=== PATIENT | female | born 1975 | race Caucasian/White ===

== ENCOUNTER 2021-05-30 10:00 | Outpatient (RCR) | payer OTHER, SELFPAY ==
--- NOTE | 2021-04-11 10:15 | [facility].SLAPHASI ---
Speech & Language Evaluation Speech/Language Aphasia Evaluation Start: 04/11/21 09:56 Freq: once Status: Complete Protocol: Document 04/11/21 09:56 BRANDT (Rec: 04/11/21 10:14 BRANDT [id number]) Aphasia Assessment/Goals/Plan Assessment Date of Evaluation: 04/11/21 Evaluation Type Initial Certification Assessment/Problems Ms. Corbett was given an aphasia and motor speech eval secondary to trigemial neuralgia. Does Patient Qualify for Service Yes Qualify/Failure Comment Ms. Melo qualifies to receive services based on the results of the assessment. Plan Pt will be seen # times/week 3 for # weeks 12 Anticipate reaching STG in # weeks 8 Anticipate reaching LTG in # weeks 12 Pt/Guardian verbally ack understanding Yes of dx/prognosis/goals Pt/Guardian verbally ack understanding Yes of/consent to tx prog G -code Required No STG-Intell/Buccal/Labial Strength Intelligibility 90 #Intelligibility Drills Performed/[place] 100 # Times Exercises Perf/Session 100 # Times Exercises Perf/Session 100 Needle Loom Setter Goals Increase oral motor tone to improve Yes intelligibility. Increase intelligibility w/use of Yes traditional articulation treatment. Education Instructions provided Home exercise program will be implemented. Pt/Caregiver Able to Recall Information Able to recall/restate Reinforcement needed No Speech & Language HPI History Present Illness Description of Patient Problem Ms. Corbett was seen today for an aphasia and motor speech eval secondary to trigemial neuralgia. Pt/Caregiver Concerns Ms. Corbett presents with concerns of delayed speech. Symptom Onset Date 03/31/21 Rehab Services Assessed Speech therapy Is this evaluation r/t stroke? No Language Primary Language [place] Lang/Spoken in Home [place] Education/Learning/Family Last School Grade Completed Trade School Diploma Therapy History Seen by other [facility] therapists No Aphasia Evaluations Communication Speech Intelligibility Speech is labored, spastic, and ataxic Auditory Comprehension Yes: Word Level Sentences Following Directions Paragraph Conversation AC Comment All areas within normal limits Reading Comprehension
== END 2021-05-30 10:05 | disposition home or self-care (01) ==
LOC: ST 10:00
PROVIDERS: Visit Provider Nurse Practitioner Family
DX: R47.89 Other speech disturbances (principal)
CPT/HCPCS: 92507; 92523

== ENCOUNTER 2024-05-29 15:00 | Outpatient (RCR) | payer OTHER, SELFPAY | END 2024-05-29 23:59 | disposition home or self-care (01) | LOC: PT 15:00 | PROVIDERS: Visit Provider Psychiatry & Neurology Neurology | DX: M54.81 Occipital neuralgia (principal) | CPT/HCPCS: 97110; 97140; 97163 ==

== ENCOUNTER 2024-06-19 16:00 | Outpatient (RCR) | payer OTHER, SELFPAY | END 2024-07-01 11:11 | disposition home or self-care (01) | LOC: PT 16:00 | PROVIDERS: Visit Provider Psychiatry & Neurology Neurology | DX: M54.81 Occipital neuralgia (principal) | CPT/HCPCS: 97110; 97112; 97140 ==